=== PATIENT | male | born 1995 | race Caucasian/White ===

== ENCOUNTER 2018-07-04 00:13 | Emergency (ER) | payer OTHER ==
[~2018-07-04] VITALS: Ht 190.5 cm; Wt 108.9 kg
[2018-07-04 00:29] VITALS: BP_SYST 139
[2018-07-04] MEDS ORDERED: KETOROLAC TROMETHAMINE 60 MG/2 ML VIAL IM ONE (00:45)
[2018-07-04 01:44] VITALS: BP_SYST 135
== END 2018-07-04 01:44 | disposition home or self-care (01) ==
LOC: SED 00:13
DX: S43.102A Unspecified dislocation of left acromioclavicular joint, initial encounter (principal); V00.131A Fall from skateboard, initial encounter; Y93.51 Activity, roller skating (inline) and skateboarding; Y92.89 Other specified places as the place of occurrence of the external cause; Y99.8 Other external cause status
CPT/HCPCS: 73030; 96372; 99283; J1885

== ENCOUNTER 2019-03-04 21:40 | Emergency (ER) | payer OTHER ==
[~2019-03-04] VITALS: Ht 190.5 cm; Wt 111.1 kg
[2019-03-04 21:48] VITALS: BP_SYST 133
--- NOTE | 2019-03-04 21:52 | NUR ---
Pt placed to ER waiting room in stable condition. No active voming, c/o nausea or diarrhea at this time.
--- NOTE | 2019-03-04 22:16 | NUR ---
Patient to ER bed 2 to gown for evaluation. Side rails up. Report given to HASMUKH RIVERA.
--- NOTE | 2019-03-04 22:20 | NUR ---
Dr. Holloway bedside for Pt eval
--- NOTE | 2019-03-04 22:22 | NUR ---
Pt BIB family to ED C/O acute onset of intermittent nonbloody, nonbilious vomiting and watery, nonbloody diarrhea that began 6 hours ago. Pt is complaining of associated generalized abdominal discomfort, chills, and PO intolerance. He tried taking Peptol Bismol with no relief. He states that he last ate a [employer] chicken sandwich at 1130 this morning. No other injuries and or complaints noted. VSS no s/s of acute distress. Resting on gurney with rails up
[2019-03-04] MEDS ORDERED: NACL 0.9% 1,000 ML IV ONE (22:30)
--- NOTE | 2019-03-04 22:30 | NUR ---
Lab bedside for blood draw
[2019-03-04 22:40] LABS: HEMATOCRIT 48.5 % (36-54); HEMOGLOBIN 16.9 g/dL (14.0-18.0); MEAN CORPUSCULAR HEMOGLOBIN 30 pg (27-31); MEAN CORPUSCULAR HGB CONC 35 % (32-36); MEAN CORPUSCULAR VOLUME 86 fL (79.0-98.0); PLATELET COUNT (AUTO) 209 K/uL (130-430); RED BLOOD CELL COUNT(AUTO) 5.63 MIL/uL (4.2-6.2); WHITE BLOOD COUNT (AUTO) 15.4 K/uL (4.8-10.8)
[2019-03-04] MEDS ORDERED: ONDANSETRON HCL 4 MG/2 ML VIAL IVP ONE (22:45)
[2019-03-04 23:01] LABS: ATYPICAL LYMPHOCYTES % 1 % (0-0); BAND % (MANUAL) 6 % (0-6); BASOPHILS % (MANUAL) 0 % (0-2); CALCIUM 9.5 mg/dL (8.4-11.0); CREATININE 1.17 mg/dL (0.55-1.30); EOSINOPHILS % (MANUAL) 0 % (0-7); LYMPHOCYTES % (MANUAL) 1 % (20-46); METAMYELOCYTES % 1 % (0-0); MONOCYTES % (MANUAL) 4 % (0-11); MYELOCYTES % 0 % (0-0); POTASSIUM 4.3 mmol/L (3.5-5.1)
[2019-03-04 23:05] LABS: ALBUMIN 4.4 g/dL (3.4-4.8)
--- NOTE | 2019-03-05 00:07 | NUR ---
Patient given written and verbal discharge instructions and verbalizes understanding. ER MD discussed with patient the results and treatment provided. Patient in stable condition. ID arm band removed. IV catheter removed intact and dressing applied, no active bleeding. Rx of motrin and zofran given. Patient educated on pain management and to follow up with PMD. Pain Scale 3/10. Opportunity for questions provided and answered. Medication side effect fact sheet provided.
[2019-03-05 00:11] VITALS: BP_SYST 129
== END 2019-03-05 00:07 | disposition home or self-care (01) ==
LOC: SED 21:40
DX: K52.9 Noninfective gastroenteritis and colitis, unspecified (principal); R03.0 Elevated blood-pressure reading, without diagnosis of hypertension
CPT/HCPCS: 36415; 80053; 85007; 85027; 96361; 96374; 99283; J2405; J7030